=== PATIENT | male | born 1965 | race African-American/Black ===

== ENCOUNTER 2018-08-15 11:45 | Emergency (ER) | payer BC, OTHER | END 2018-08-15 12:58 | disposition home or self-care (01) | LOC: JERFT 11:45 ==

== ENCOUNTER 2019-09-11 12:36 | Emergency (ER) | payer BC, OTHER ==
--- NOTE | 2019-09-11 12:42 | PDOC ---
Rapid Medical Evaluation Time Seen by Provider: 09/11/19 12:40 Medical Evaluation: Allergies Allergy/AdvReac Type Severity Reaction Status Date / Time No Known Allergies Allergy Verified 08/15/18 11:49 09/11/19 12:40 I performed a brief in-person evaluation of this patient. 54 y/o male who presents with R great toe pain for the last few days. He denies any known injury. He has not taken anything for the pain. He denies any past medical history. Pertinent physical exam findings: walking with an antalgic gait, speaking in full sentences I have ordered the following: R foot/great toe xray Patient to proceed to ED for further evaluation. Discharge Disposition - Diagnosis Pain of right great toe - Referrals - Patient Instructions - Post Discharge Activity
[2019-09-11 12:44] VITALS: BP 138/90; PULSE 78; TEMP 99; BMI 24.7
[2019-09-11] MEDS ORDERED: NAPROXEN 500 MG TABLET PO ONE (13:18)
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
[2019-09-11] MEDS ORDERED: NAPROXEN 500 MG TABLET ONE (13:20)
== END 2019-09-11 13:21 | disposition home or self-care (01) ==
LOC: JERFT 12:36
DX: M79.674 Pain in right toe(s) (principal)
CPT/HCPCS: 73630-TC-RT-FY; 99283-25

== ENCOUNTER 2021-06-02 13:30 | Emergency (ER) | payer OTHER ==
[2021-06-02 13:37] VITALS: BP 132/88; PULSE 76; TEMP 98.1; BMI 26.5
== END 2021-06-02 14:05 | disposition home or self-care (01) ==
LOC: JERFT 13:30
DX: S76.212A Strain of adductor muscle, fascia and tendon of left thigh, initial encounter (principal); X50.0XXA Overexertion from strenuous movement or load, initial encounter
CPT/HCPCS: 99281-25

== ENCOUNTER 2022-03-22 13:16 | Emergency (ER) | payer OTHER ==
[2022-03-22 13:25] VITALS: BP 135/74; PULSE 81; RESP 18; TEMP 98.1; BMI 27.4
[2022-03-22] MEDS ORDERED: LIDOCAINE 5% TOPICAL PATCH TP ONE (14:50)
[2022-03-22] MEDS ORDERED: METHOCARBAMOL 500 MG TABLET PO ONE (14:50)
[2022-03-22] MEDS ORDERED: KETOROLAC TROMETHAMINE 30 MG/1 ML VIAL IM ONE (14:50)
[2022-03-22] MEDS ORDERED: LIDOCAINE 5% TOPICAL PATCH ONE (15:12)
[2022-03-22] MEDS ORDERED: METHOCARBAMOL 500 MG TABLET ONE (15:13)
[2022-03-22] MEDS ORDERED: KETOROLAC TROMETHAMINE 30 MG/1 ML VIAL ONE (15:13)
[2022-03-22] MEDS ORDERED: LIDOCAINE PATCH REMOVAL MC SCH (22:00)
== END 2022-03-22 16:29 | disposition home or self-care (01) ==
LOC: JERFT 13:16
DX: M54.50 Low back pain, unspecified (principal)
CPT/HCPCS: 72100-TC-FY; 99283-25

== ENCOUNTER 2023-05-12 15:00 | Emergency (ER) | payer OTHER ==
[2023-05-12 15:15] VITALS: BP 137/88; PULSE 66; RESP 18; TEMP 97.8; BMI 26.5
== END 2023-05-12 16:57 | disposition home or self-care (01) ==
LOC: JERFT 15:00
DX: S69.91XA Unspecified injury of right wrist, hand and finger(s), initial encounter (principal); X58.XXXA Exposure to other specified factors, initial encounter; Y99.0 Civilian activity done for income or pay; Y92.511 Restaurant or cafe as the place of occurrence of the external cause
CPT/HCPCS: 73110-TC-RT-FY; 99283-25

== ENCOUNTER 2023-12-28 15:10 | Emergency (ER) | payer OTHER ==
[2023-12-28 15:17] VITALS: BP 143/85; PULSE 77; RESP 18; TEMP 97.8; BMI 26.5
== END 2023-12-28 16:39 | disposition home or self-care (01) ==
LOC: JERFT 15:10
DX: L02.426 Furuncle of left lower limb (principal)
CPT/HCPCS: 99283-25

== ENCOUNTER 2024-02-29 14:13 | Emergency (ER) | payer OTHER ==
[2024-02-29 14:18] VITALS: BP 131/78; PULSE 71; RESP 18; TEMP 98.7; BMI 26.5
[2024-02-29] MEDS ORDERED: LIDOCAINE 4% PATCH TP ONE (15:41)
[2024-02-29] MEDS ORDERED: IBUPROFEN 600 MG TABLET (FP) PO ONE (15:41)
[2024-02-29] MEDS ORDERED: METHOCARBAMOL 500 MG TABLET ONE (15:42)
[2024-02-29] MEDS: IBUPROFEN 600 MG TABLET (FP) PO ONE (15:47)
[2024-02-29] MEDS: LIDOCAINE 4% PATCH TP ONE (15:47)
[2024-02-29] MEDS: METHOCARBAMOL 500 MG TABLET PO ONE (17:57)
== END 2024-02-29 17:57 | disposition home or self-care (01) ==
LOC: JERFT 14:13
DX: S40.021A Contusion of right upper arm, initial encounter (principal); R07.89 Other chest pain; W01.0XXA Fall on same level from slipping, tripping and stumbling without subsequent striking against object, initial encounter
CPT/HCPCS: 71101-TC-RT-FY; 73060-TC-RT-FY; 99284-25